=== PATIENT | female | born 1945 | race Caucasian/White ===

== ENCOUNTER 2017-02-25 14:09 | Day surgery (SDC) | payer MEDICARE ==
[~2017-02-25 14:09] MED LIST: GLUCOPHAGE1000 MG PO; GLUCOTROL 5 MG T5 MG PO; MOBIC7.5 MG PO; PRESERVISION AR1 CAP PO; SYNTHROID75 MCG PO; ZOCOR10 MG PO
[2017-02-25 15:23] LABS: BASOPHILS 0.2 % (0-2); EOSINOPHILS 1.3 % (0-7); HEMATOCRIT 35.3 % (36.0-48.0); HEMOGLOBIN 11.7 g/dL (12-16); IMMATURE GRANULOCYTES 0.2 % (0-5); LYMPHOCYTES 17.3 % (15-50); MCH 30.1 pg (26.0-34.0); MCHC 33.1 g/dL (31.0-37.0); MCV 90.7 fL (80.0-100.0); MONOCYTES 8.7 % (2-11); NEUTROPHILS 72.3 % (40-80); PLATELET COUNT 323 10x3/uL (130-400); RBC 3.89 10x6/uL (4.00-5.40); RDW 13.3 % (11.5-14.5); WBC 11.3 10x3/uL (4.8-10.8)
[2017-02-25 15:35] LABS: INR 0.93 (0.85-1.17); PROTIME 12.3 SECONDS (11.6-15.0)
[2017-02-25 15:43] LABS: ALBUMIN 3.4 g/dL (3.4-5.0); ANION GAP 16.1 mmol/L (8-16); BILIRUBIN - TOTAL 0.31 mg/dL (0.2-1.3); CALCIUM 9.2 mg/dL (8.5-10.1); CARBON DIOXIDE 25.2 mmol/L (21.0-32.0); CREATININE - SERUM 1.2 mg/dL (0.6-1.3); MAGNESIUM - SERUM 1.9 mg/dL (1.8-2.4); POTASSIUM - SERUM 4.3 mmol/L (3.5-5.1); PROTEIN - SERUM 8.3 g/dL (6.4-8.2)
[2017-02-25 23:05] VITALS: BP 139/72
[2017-02-25 23:26] VITALS: BP 133/72
[2017-02-25 23:41] VITALS: BP 131/71
[2017-02-25] MEDS ORDERED: GLUCOPHAGE XR750 MG PO (23:53)
[2017-02-25] MEDS ORDERED: GLIPIZIDE10 MG PO (23:54)
[2017-02-25] MEDS ORDERED: PROZAC20 MG PO (23:55)
[2017-02-25 23:56] VITALS: BP 123/58
[2017-02-25] MEDS ORDERED: VENTOLIN HFA18 GM INH (23:56)
[2017-02-26] VITALS (10 sets, daily range): BP systolic 93–177; BP diastolic 47–100; BMI 24.3
--- NOTE | 2017-02-26 09:10 | OP ---
PATIENT NAME: KATYA WASHINGTON MEDICAL RECORD: [id number] :49 LOCATION:D.[id number] ADMISSION DATE:02/25/17 SURGEON: CHESTER FERRIS DO DATE OF OPERATION: 02/25/2017 PROCEDURE PERFORMED: Right bimalleolar ankle fracture open reduction internal fixation with syndesmotic fixation. PREOPERATIVE DIAGNOSIS: Right ankle fracture dislocation that was closed. POSTOPERATIVE DIAGNOSIS: Right ankle fracture dislocation that was closed. INDICATIONS: Ms. Washington is a 71-year-old female who fell while getting up from a chair today, went to catch a wall and missed and twisted her ankle and fractured and dislocated. She was brought to the ER and seen in the ER, was dislocated, in the ER attempted reduction were not successful. They splinted it and at that time I saw her in the ER and decided she needed to have surgery. The medial malleolus was tenting the skin and therefore decided to take her back this evening to the operating room. She is admitted to medicine and consented for the procedure. I warned of the risks and benefits of the procedure. Once this was done, she was consented. SURGEON: Chester Ferris DO COMPLICATIONS: None. TOTAL TOURNIQUET TIME: 114 minutes. BLOOD LOSS: 50 mL. DESCRIPTION OF PROCEDURE: The patient was taken to the operative suite, placed in supine position. The right hip was bumped up, placed on bone foam. The procedure commenced after timeout was performed and the patient was given 2 grams Ancef. Once she was given that everyone was in agreement that this was the correct site, side and patient. The right leg was prepped and draped. A tourniquet was placed above the knee. Below the knee was prepped and draped in sterile fashion. The procedure then commenced with the fibula. Incision was made just over the fibula and careful dissection was made down to the fibula itself. The fibula was somewhat difficult to reduce. The plate was placed distally first and locked and then proximally. Then, attention was drawn to the medial malleolus. Medial malleolus was then fixed with 2 cannulated screws. An incision was made just anterior to the medial malleolus and curved posteriorly over the joint, visualized and good reduction at that time. Once this was done, getting lateral x-rays, tibia was seen to be not reduced and seemed to be posterior. This was recognized and seemed to be a Franklin-type fracture dislocation of the fibula where the fibula was posterior to the tibia more that the proximal fibula was caught and posterior to the fibular incisura on the tibia. Once this was recognized, we then returned to the lateral side of the ankle and reduced the fibula to its proper place. After the screws were taken out proximally from the fibular plate, the distal screws were left and the fibula was reduced at that time. This was confirmed on x-ray and then 2 screws were placed proximal, first a cortical screw and then a locking screw at the very top of the construct of the plate, the locking screws remained in place on the distal fibula. X-rays were taken and the syndesmosis was stressed that time and seen to widen as well as a medial malleolus clear space. Then, a large OPERATIVE REPORT [id number] KATYA WASHINGTON clamp was used to reduce the syndesmosis and two ZipTights were used with a 3.5 drill, drilled across from the fibula through the medial cortex of the tibia. This was done just proximal to the fracture site and right in the distal aspect of the fracture site of the fibula. Once this was done and seen to be satisfactorily reduced and tightened, the clamp was taken off and the sutures were cut from the ZipTight. The ankle was then stressed again and seemed to be very stable. Tourniquet was let down at 114 minutes. The wound was then irrigated thoroughly and bleeding was controlled. The fibular incision was then irrigated well and closed with 2-0 Vicryl in an inverted interrupted fashion and the medial incision was closed with 2-0 Vicryl and then the skin was closed with a 3-0 Monocryl in a horizontal mattress fashion. A ZipLine was used on the lateral ankle for skin closure. Implants that were used was a Biomet ZipTight ankle syndesmosis times 2. A 4.0 right anatomic fibular locking plate. Five 3.5 cortical screws. Two 3.5 low profile screws and they were 4.0 screws which were 46 in length, partially threaded times 2 that was used on the medial malleolus. Blood loss was approximately 50 mL. TRANSINT:[id number] Voice Confirmation ID: [id number] DOCUMENT ID: [id number] CHESTER FERRIS DO at 0910 CC: [id number] DICTATION DATE: 02/25/172251 GROUNDSMAN: 02/26/17 0045 ADM IN [facility] [address] [id number]
[2017-02-26 10:11] LABS: ALBUMIN 2.8 g/dL (3.4-5.0); ANION GAP 9.4 mmol/L (8-16); BILIRUBIN - TOTAL 0.6 mg/dL (0.2-1.3); CALCIUM 8.5 mg/dL (8.5-10.1); CARBON DIOXIDE 28.9 mmol/L (21.0-32.0); CREATININE - SERUM 1.4 mg/dL (0.6-1.3); POTASSIUM - SERUM 5.3 mmol/L (3.5-5.1); PROTEIN - SERUM 6.8 g/dL (6.4-8.2)
[2017-02-26 10:31] LABS: BASOPHILS 0.2 % (0-2); EOSINOPHILS 0.6 % (0-7); HEMATOCRIT 32.6 % (36.0-48.0); HEMOGLOBIN 10.3 g/dL (12-16); IMMATURE GRANULOCYTES 0.3 % (0-5); LYMPHOCYTES 11.1 % (15-50); MCH 29.8 pg (26.0-34.0); MCHC 31.6 g/dL (31.0-37.0); MONOCYTES 10.7 % (2-11); NEUTROPHILS 77.1 % (40-80); PLATELET COUNT 286 10x3/uL (130-400); RBC 3.46 10x6/uL (4.00-5.40); RDW 13.5 % (11.5-14.5); WBC 12.2 10x3/uL (4.8-10.8)
[2017-02-26 10:35] LABS: MCV 94.2 fL (80.0-100.0)
[2017-02-27] VITALS: BP 96/45
[2017-02-27 04:00] VITALS: BP 97/51
[2017-02-27 06:06] LABS: BASOPHILS 0.3 % (0-2); EOSINOPHILS 2.3 % (0-7); HEMATOCRIT 29.7 % (36.0-48.0); HEMOGLOBIN 9.5 g/dL (12-16); IMMATURE GRANULOCYTES 0.2 % (0-5); LYMPHOCYTES 19.1 % (15-50); MCV 93.7 fL (80.0-100.0); MEAN PLATELET VOLUME 9.2 fL (7.4-10.4); MONOCYTES 14.9 % (2-11); NEUTROPHILS 63.2 % (40-80); PLATELET COUNT 266 10x3/uL (130-400); RBC 3.17 10x6/uL (4.00-5.40); RDW 13.7 % (11.5-14.5); WBC 10.4 10x3/uL (4.8-10.8)
[2017-02-27 06:46] LABS: ALBUMIN 2.4 g/dL (3.4-5.0); ANION GAP 11.2 mmol/L (8-16); BILIRUBIN - TOTAL 0.5 mg/dL (0.2-1.3); CALCIUM 7.9 mg/dL (8.5-10.1); CARBON DIOXIDE 26.1 mmol/L (21.0-32.0); CREATININE - SERUM 1.2 mg/dL (0.6-1.3); POTASSIUM - SERUM 4.3 mmol/L (3.5-5.1); PROTEIN - SERUM 6.4 g/dL (6.4-8.2)
[2017-02-27 08:11] VITALS: BP 102/57
[2017-02-27] MEDS ORDERED: VIBRAMYCIN 100100 MG PO (08:59)
[2017-02-27] MEDS ORDERED: HYDROCODONE-APA1 TAB PO (08:59)
[2017-02-27] MEDS ORDERED: ZOFRAN ODT4 MG/UDTAB PO (08:59)
[2017-02-27] MEDS ORDERED: ECOTRIN325 MG PO (08:59)
== END 2017-02-27 15:40 | disposition home or self-care (01) ==
LOC: OBSVTIME → D.OPS 14:09 → D.ER 14:09 → EDSTATUS 15:30 → OBSVTIME 16:28 → D.MS 16:28 → D.ER 16:28 → D.MS 16:28 → D.OPS 02-27 15:40
PROVIDERS: Emergency Medicine; Family Medicine
DX: S82.841A Displaced bimalleolar fracture of right lower leg, initial encounter for closed fracture (principal); W07.XXXA Fall from chair, initial encounter; E11.9 Type 2 diabetes mellitus without complications; E78.5 Hyperlipidemia, unspecified; E07.9 Disorder of thyroid, unspecified; H35.30 Unspecified macular degeneration; H91.90 Unspecified hearing loss, unspecified ear; Z79.84 Long term (current) use of oral hypoglycemic drugs; Z79.1 Long term (current) use of non-steroidal anti-inflammatories (NSAID); Z88.5 Allergy status to narcotic agent; Z88.0 Allergy status to penicillin; Z88.2 Allergy status to sulfonamides; Z87.891 Personal history of nicotine dependence

== ENCOUNTER → 2018-01-07 14:07 | Outpatient (CLI) | payer MEDICARE ==
[2017-02-26 00:49] VITALS: BMI 24.3
[~2018-01-07 14:07] MED LIST changes: +ECOTRIN325 MG PO; +GLIPIZIDE10 MG PO; +GLUCOPHAGE XR750 MG PO; +HYDROCODONE-APA1 TAB PO; +PROZAC20 MG PO; +VENTOLIN HFA18 GM INH; +VIBRAMYCIN 100100 MG PO; +ZOFRAN ODT4 MG/UDTAB PO
== END | disposition home or self-care (01) ==
LOC: D.US 14:07
DX: Z68.23 Body mass index [BMI] 23.0-23.9, adult (principal)

== ENCOUNTER 2019-04-26 07:06 | Inpatient (IN) | payer OTHER ==
[~2019-04-26] VITALS: Ht 172.7 cm; Wt 74.4 kg
[~2019-04-26 07:06] MED LIST changes: +TRADJENTA5 MG PO
[2019-04-26 07:43] LABS: ANION GAP 13.8 mmol/L (8-16); CARBON DIOXIDE 27.3 mmol/L (21.0-32.0); CREATININE - SERUM 1.6 mg/dL (0.6-1.3); POTASSIUM - SERUM 4.1 mmol/L (3.5-5.1)
[2019-04-26 07:45] LABS: HEMATOCRIT 37.7 % (36.0-48.0); HEMOGLOBIN 12.5 g/dL (12-16); MCH 29.8 pg (26.0-34.0); MCHC 33.2 g/dL (31.0-37.0); RBC 4.19 10x6/uL (4.00-5.40); RDW 13.7 % (11.5-14.5); WBC 8.3 10x3/uL (4.8-10.8)
[2019-04-26 08:58] VITALS: BMI 25.1
[2019-04-26] MEDS ORDERED: FLAGYL500 MG PO (09:35)
[2019-04-26] MEDS ORDERED: NEOMYCIN SULFA500 MG PO (09:36)
--- NOTE | 2019-04-26 13:24 | NUR ---
AMEZCUA DC'D WITH CATHETER TIP INTACT PER DR BUSTILLO ORDERS. 120CC ALDO URINE IN BAG.
[2019-04-26 14:30] VITALS: BP 118/50
[2019-04-26 14:39] VITALS: BP 118/50; BMI 24.9
[2019-04-26 17:03] VITALS: BP 102/42
[2019-04-26 17:22] LABS: BASOPHILS 0.2 % (0-2); EOSINOPHILS 0.1 % (0-7); HEMATOCRIT 32.9 % (36.0-48.0); HEMOGLOBIN 10.4 g/dL (12-16); IMMATURE GRANULOCYTES 0.2 % (0-5); LYMPHOCYTES 7.7 % (15-50); MCH 29.1 pg (26.0-34.0); MCHC 31.6 g/dL (31.0-37.0); MCV 91.9 fL (80.0-100.0); MEAN PLATELET VOLUME 9.1 fL (7.4-10.4); MONOCYTES 10.6 % (2-11); NEUTROPHILS 81.2 % (40-80); PLATELET COUNT 245 10x3/uL (130-400); RBC 3.58 10x6/uL (4.00-5.40); RDW 13.9 % (11.5-14.5)
[2019-04-26 17:30] LABS: WBC 12.4 10x3/uL (4.8-10.8)
--- NOTE | 2019-04-26 19:23 | NUR ---
PATIENT RESTING IN BED AND DENIES NEEDS AT THIS TIME. PATIENT ALSO DENIES PAIN AT THIS TIME. BED IN LOWEST POSITION AND CALL LIGHT WITHIN REACH. ENCOURAGED THE PATIENT TO CALL IF SHE HAS NEEDS. WILL CONTINUE TO MONITOR.
[2019-04-26 20:00] VITALS: BP 117/50
[2019-04-27] VITALS: BP 110/51
--- NOTE | 2019-04-27 02:50 | NUR ---
ASSISTED PATIENT TO THE RESTROOM FOR THE THIRD TIME TO ATTEMPT TO URINATE. PATIENT STATED SHE WAS ONLY ABLE TO GO "A TINY BIT". BLADDER SCAN REVEALED 827ML
--- NOTE | 2019-04-27 03:13 | NUR ---
IN AND OUT CATH 600 ML
[2019-04-27 04:00] VITALS: BP 108/59
--- NOTE | 2019-04-27 07:30 | NUR ---
PATIENT AWAKE. NO NEEDS AT THIS TIME. CL IN REACH. WCTM
[2019-04-27 08:00] VITALS: BP 109/55
--- NOTE | 2019-04-27 10:45 | NUR ---
PATIENT PROVIDED ICE CHIPS. INFORMED TO TAKE IT SLOW. LET ME KNOW IF SHE HAS ANY NAUSEA. PREPARING TO TAKE A NAP. CL IN REACH. MATHEUS
[2019-04-27 12:00] VITALS: BP 115/52
[2019-04-27 17:04] VITALS: BP 115/59
--- NOTE | 2019-04-27 17:20 | NUR ---
PATIENT ASSISTED TO BATHROOM AND BACK TO BED. GRANDSON LAURA HERE. SCD'S REAPPLIED. CL IN REACH. WCTM
[2019-04-27 20:00] VITALS: BP 139/66
[2019-04-28] VITALS: BP 127/61
[2019-04-28 04:00] VITALS: BP 110/64
--- NOTE | 2019-04-28 08:39 | NUR ---
PATIENT AWAKE LAYING IN BED. CL IN REACH. NO NEEDS AT THIS TIME. WCTM
[2019-04-28 09:02] VITALS: BP 115/63
[2019-04-28 13:25] VITALS: BP 113/65
[2019-04-28 14:23] VITALS: Ht 172.7 cm; Wt 74.4 kg
--- NOTE | 2019-04-28 16:51 | OP ---
PATIENT NAME: KATYA WYNNE MEDICAL RECORD: [id number] :49 LOCATION:D.[facility] ADMISSION DATE:04/26/19 SURGEON: ARUN BUSTILLO MD DATE OF OPERATION: 04/26/2019 PREOPERATIVE DIAGNOSIS: Endoscopically unresectable appendiceal orifice polyp. POSTOPERATIVE DIAGNOSES: Endoscopically unresectable appendiceal orifice polyp. PROCEDURE: Laparoscopic cecectomy with conversion to hand-assisted laparoscopic surgery - partial right colectomy. SURGEON: Arun Bustillo MD DIESEL TRUCK CRANE OPERATOR: None. BLOOD LOSS: 100 cc. ANESTHESIA: General. COMPLICATIONS: None. The risks, possible complications, and alternatives to the procedure were explained to the patient. She elects to proceed. The discussion specifically included, but was not limited to, bleeding requiring emergency reoperation, infection, intestinal injury, anastomotic leakage, and colostomy formation. OPERATIVE COURSE: The patient was conveyed to the operating room electively on 04/26/2019. General anesthesia was induced by the anesthesia staff. The abdomen was sterilely prepped and draped. A small skin jenny was accomplished in the left upper quadrant. A Veress needle was inserted through the skin jenny into the peritoneal cavity. CO2 insufflation was begun. Once a sufficient pneumoperitoneum had been achieved, a 5-mm trocar was inserted through an incision in the left upper quadrant. Under direct internal vision utilizing a television camera, a 12-mm trocar was inserted through an incision at the umbilicus. Another 5-mm trocar was inserted through the incision in the left lower quadrant. During insertion of the Veress needle and all trocars, there appeared to have been no injury to the bowels, any intraperitoneal or retroperitoneal structures. An abdominal survey was undertaken. I noted no evidence of liver lesions. I used endoscopic scissors to free up the cecum and a portion of the right colon from the side wall. I was able to then pull this portion of the colon immediately. I took down the mesoappendix utilizing the laparoscopic EnSeal device. I grasped the appendix and I pulled it caudad and then took an Endo-URSZULA stapler with a blue load and stapled across the cecum. I then placed the specimen in a retrieval bag. I then retrieved it out through the umbilical fascia defect. I then opened the specimen on the back table. I noted no evidence of a polyp. I sent this to Dr. Westbrook in the pathology department. He grossly determined that no polypoid tissue was present within the specimen. I then regowned and regloved. I was able to grasp a little bit more of the colonic tissue and I feared that if I took more it would cause impingement upon the ileocecal valve. OPERATIVE REPORT [id number] KATYA WYNNE I kind of rolled the colon from anteriorly to posteriorly. I stapled across additional colon with an Endo-URSZULA type stapler utilizing blue loads. The specimen was placed within a bag retrieval device. It was withdrawn through the umbilical fascia defect. I then opened it up on the back table and again identified no polypoid tissue. This was sent to Dr. Westbrook in the pathology department. I went with the specimen and reviewed it with Dr. Westbrook and he agreed that there was no polyp within the specimen. In order to ensure that the polyp had been removed, it is going to be necessary for me to perform a resection anastomosis. I chose an area for insertion of a hand port. This was in the right side of the abdomen between the anterior superior iliac spine and the right costal margin. A transverse incision was accomplished. Sharp dissection was carried down through the skin and subcutaneous tissues. I incised the external oblique muscle along the direction of its fibers and utilizing a fiber technique, I the fibers of the external oblique muscle and aponeurosis, the internal oblique muscle and then the transversus abdominis muscle. I entered the peritoneal cavity sharply. An Darci retractor was placed. Through the Darci retractor, I was able to do some more finger dissection and I was able to deliver the cecum as well as a portion of the ascending colon and the ileum. I stapled across the ileum with a URSZULA-75 stapler. I then chose the distal extent of my resection to be the mid ascending colon. This would ensure that the polyp would be removed. A window was created in the mesocolon. I stapled across the colon with a URSZULA-75 stapler. The interpose mesentery was taken down with the EnSeal device. This was opened on the back table and I could not identify any polypoid tissue. It must have been present within one of the staple lines or perhaps Dr. Westbrook can find it. Anyhow, it certainly must have been removed as I resected all the way up to the mid ascending colon. The antimesenteric borders of the ileum and the colon were then placed in apposition side by side. They were kept in place with 3-0 Vicryl sutures. A small enterotomy and small colotomy were accomplished. Anvils of the URSZULA-75 stapler were advanced and then fired. The resulting intracolonic defect was closed with a single firing of the TA 60 stapler. The anastomosis was then returned to the peritoneal cavity. I irrigated and aspirated and there was no bleeding. I then closed the muscles in layers. The transverse abdominis muscle was closed with a running #1 Vicryl. The internal oblique muscle was closed with a running #1 Vicryl. The external oblique was closed with a running #1 Vicryl. The deep adipose tissue was closed with interrupted 3-0 Vicryls. The subcutaneous adipose tissue was closed with interrupted 3-0 Vicryls. The skin was closed with a running intracuticular 3-0 Vicryl. I then reinsufflated the abdomen. I investigated the abdomen. I irrigated and aspirated. There was no bleeding. The 12-mm trocar was removed. Utilizing the Jered-Nathanael suture closure device and 0 Vicryl suture, the umbilical fascia defect was closed. All the trocars were removed and the abdomen desufflated. The skin at the level of umbilicus was closed with interrupted 4-0 Vicryl Rapide sutures. The other 2 trocar sites were closed with interrupted intracuticular 3-0 Vicryls. Benzoin and Steri-Strips were applied. The patient was then extubated and conveyed to post-anesthesia care unit where OPERATIVE REPORT [id number] KATYA WYNNE she was in stable condition. TRANSINT:[id number] Voice Confirmation ID: [id number] DOCUMENT ID: [id number] ARUN BUSTILLO MD at 1651 CC: [id number] DICTATION DATE: 04/27/191657 HAMMERSMITH HELPER: 04/27/19 2242 ADM IN [id number] [place] [address]
[2019-04-28 17:02] VITALS: BP 103/58
[2019-04-28 20:00] VITALS: BP 98/55
[2019-04-29] VITALS: BP 136/62
[2019-04-29 04:00] VITALS: BP 119/64
--- NOTE | 2019-04-29 07:25 | NUR ---
PT SITTING UP IN CHAIR AT BEDSIDE, ALERT AND ORIENTED. IV LOCATED TO RIGHT HAND WITH NS RUNNING @ 30ML. NO S/S OF DISTRESS AT THIS TIME, DENIES NEEDS, WILL CONT TO MONITOR.
[2019-04-29 08:35] VITALS: BP 132/54
[2019-04-29] MEDS ORDERED: HYDROCODON-ACE1 EAC7 PO (09:28)
[2019-04-29] MEDS ORDERED: COLACE100 MG PO (09:48)
--- NOTE | 2019-04-29 11:41 | MORECARE ---
CASE MANAGEMENT DISCHARGE SUMMARY PATIENT: KATYA WYNNE UNIT: [id number] ADM DATE: 04/26/19 AGE: 73 : 47 SEX: F ROOM/BED: D.2202 AUTHOR: KATIE LANG PHYSICIAN: REFERRING PHYSICIAN: ARUN BUSTILLO MD DATE OF SERVICE: 04/29/19 Discharge Plan Patient Name: KATYA WYNNE Facility: [facility]:[place] : 1945 Planned Disposition: Anticipated Discharge Date: Discharge Date: Expected LOS: Initial Reviewer: [email or web address] Initial Review Date: 04/27/2019 Generated: 04/29/19 12:41 pm Coverage Notice Reviewer: [email or web address] Carlota Woodruff Notice Issued Date-Time: 04/29/2019 10:15 Notice Type: IM Discharge Notice Notice Delivered To: Patient Relationship to Patient: Self Environmental Sustainability Manager Name: Delivery Method: HAND - Hand Delivered Lainey Days: Prior Verbal Notification: Recipient Understood Notice: Yes Recipient Signature: Yes Med Rec Note Co-signed by Attending: Coverage Notice Comment: D/C IMM SIGNED 04/29/19 @ 1015 Patient Name: KATYA WYNNE Page [phone] at 1141 All edits/amendments must be made on the electronic document DICTATION DATE: 04/29/19 1141 PHARMACY SALES REPRESENTATIVE: MICKY 04/29/19 1141 RPT#: [id number] DC DATE: STATUS: ADM IN [facility] [address] [place] [address] END OF REPORT
--- NOTE | 2019-04-29 11:54 | MORECARE ---
CASE MANAGEMENT DISCHARGE SUMMARY PATIENT: KATYA WYNNE UNIT: [id number] ADM DATE: 04/26/19 AGE: 73 : 47 SEX: F ROOM/BED: D.2202 AUTHOR: RICKEY,DOC PHYSICIAN: REFERRING PHYSICIAN: ARUN BUSTILLO MD DATE OF SERVICE: 04/29/19 Discharge Plan Patient Name: KATYA WYNNE Facility: [facility]:[place] : 1945 Planned Disposition: Anticipated Discharge Date: Discharge Date: Expected LOS: Initial Reviewer: [email or web address] Initial Review Date: 04/27/2019 Generated: 04/29/19 12:54 pm Comments DCP- Discharge Planning Updated by [email or web address]: Makayla Woodruff on 04/29/19 10:[address] Patient Name: KATYA WYNNE Admission Status: Elective Accout number: [id number] Admission Date: 04-26-2019 : 1945 Admission Diagnosis:BENIGN NEOPLASM OF CECUM Attending: ARUN BUSTILLO Current LOS: 3 Anticipated DC Date: Planned Disposition: Primary Insurance: [email or web address] Discharge Planning Comments: CM met with patient to complete initial dc planning assessment. CM educated patient on the CM role and verbal consent given by patient to complete assessment. CM verified patient's address, phone number, and emergency contact phone numbers. Patient lives at home with a family member. At discharge patient plans to return home and feels this is a safe discharge. CM discussed availability of home health, rehab services, and medical equipment. Patient denied known discharge needs at this time. D/C IMM signed 04/29/19 @ 1015. CM will continue to follow and will assist as needed with dc plans/needs. Hvac Service Tech: Makayla Woodruff DCPIA - Discharge Planning Initial Assessment Updated by [email or web address]: Makayla Woodruff on 04/29/19 11:50 am * Is the patient Alert and Oriented? Yes * How many steps to enter\exit or inside your home? * PCP ELANA * [facility] * Preadmission Environment Home with Family * ADLs Independent * Other Equipment BSC, CANE * List name and contact numbers for known caregivers / representatives who currently or will assist patient after discharge: MERLYN SHI - DAUGHTER- [phone] * Verbal permission to speak to the caregivers and representatives has been obtained from the patient. Yes * Community resources currently utilized None * Additional services required to return to the preadmission environment? No * Can the patient safely return to the preadmission environment? Yes * Has this patient been hospitalized within the prior 30 days at any hospital? No Coverage Notice Reviewer: [email or web address] Carlota Woodruff Notice Issued Date-Time: 04/29/2019 10:15 Notice Type: IM Discharge Notice Notice Delivered To: Patient Relationship to Patient: Self Back Tender Cylinder Name: Delivery Method: HAND - Hand Delivered Lainey Days: Prior Verbal Notification: Recipient Understood Notice: Yes Recipient Signature: Yes Med Rec Note Co-signed by Attending: Coverage Notice Comment: D/C IMM SIGNED 04/29/19 @ 1015 Last DP export: 04/29/19 10:41 Patient Name: KATYA WYNNE Page [phone] at 1154 All edits/amendments must be made on the electronic document DICTATION DATE: 04/29/19 1154 FOUNDRY HAND: MICKY 04/29/19 1154 RPT#: [id number] DC DATE: STATUS: ADM IN [facility] [address] [place] [address] END OF REPORT
--- NOTE | 2019-05-01 12:25 | MORECARE ---
CASE MANAGEMENT DISCHARGE SUMMARY PATIENT: KATYA WYNNE UNIT: [id number] ADM DATE: 04/26/19 AGE: 73 : 47 SEX: F ROOM/BED: D.2202 AUTHOR: RICKEYDOC PHYSICIAN: REFERRING PHYSICIAN: ARUN BUSTILLO MD DATE OF SERVICE: 05/01/19 Discharge Plan Patient Name: KATYA WYNNE Facility: [facility]:[place] : 1945 Planned Disposition: Anticipated Discharge Date: Discharge Date: 04/29/2019 Expected LOS: Initial Reviewer: [id number] Initial Review Date: 04/27/2019 Generated: 05/01/19 1:24 pm Comments DCP- Discharge Planning Updated by [email or web address]: Makayla Woodruff on 04/29/19 10:[address] Patient Name: KATYA WYNNE Admission Status: Elective Accout number: [id number] Admission Date: 04-26-2019 : 1945 Admission Diagnosis:BENIGN NEOPLASM OF CECUM Attending: ARUN BUSTILLO Current LOS: 3 Anticipated DC Date: Planned Disposition: Primary Insurance: [employer] Discharge Planning Comments: CM met with patient to complete initial dc planning assessment. CM educated patient on the CM role and verbal consent given by patient to complete assessment. CM verified patient's address, phone number, and emergency contact phone numbers. Patient lives at home with a family member. At discharge patient plans to return home and feels this is a safe discharge. CM discussed availability of home health, rehab services, and medical equipment. Patient denied known discharge needs at this time. D/C IMM signed 04/29/19 @ 1015. CM will continue to follow and will assist as needed with dc plans/needs. Pediatric Care Coordinator: Makayla Woodruff DCPIA - Discharge Planning Initial Assessment Updated by [email or web address]: Makayla Woodruff on 04/29/19 11:50 am * Is the patient Alert and Oriented? Yes * How many steps to enter\exit or inside your home? * PCP ELANA * [facility] * Preadmission Environment Home with Family * ADLs Independent * Other Equipment BSC, CANE * List name and contact numbers for known caregivers / representatives who currently or will assist patient after discharge: MERLYN SHI - PHYLLIS- [phone] * Verbal permission to speak to the caregivers and representatives has been obtained from the patient. Yes * Community resources currently utilized None * Additional services required to return to the preadmission environment? No * Can the patient safely return to the preadmission environment? Yes * Has this patient been hospitalized within the prior 30 days at any hospital? No Coverage Notice Reviewer: [id number] Carlota Woodruff Notice Issued Date-Time: 04/29/2019 10:15 Notice Type: IM Discharge Notice Notice Delivered To: Patient Relationship to Patient: Self Store Assistant Name: Delivery Method: HAND - Hand Delivered Lainey Days: Prior Verbal Notification: Recipient Understood Notice: Yes Recipient Signature: Yes Med Rec Note Co-signed by Attending: Coverage Notice Comment: D/C IMM SIGNED 04/29/19 @ 1015 Last DP export: 04/29/19 10:54 Patient Name: KATYA WYNNE Page [phone] at 1225 All edits/amendments must be made on the electronic document DICTATION DATE: 05/01/19 1224 CELL ASSEMBLY PINNER: MICKY 05/01/19 1224 RPT#: [id number] DC DATE:04/29/19 STATUS: DIS IN [facility] [address] [place] [address] END OF REPORT
== END 2019-04-29 15:21 | disposition home or self-care (01) | DRG 330 ==
LOC: D.OPS 07:06 → D.MS 07:06 → D.PAN 09:30 → D.OPS 09:30 → D.PAN 09:45 → D.MS 14:01 → D.OPS 14:01 → D.MS 04-29 15:21
PROVIDERS: Anesthesiology; ADMIT Surgery; ATTEND Surgery
PROC: 0DTH0ZZ Resection of Cecum, Open Approach (ICD-10-PCS; principal; 2019-04-26 09:30)
PROC: 0DBF0ZZ Excision of Right Large Intestine, Open Approach (ICD-10-PCS; 2019-04-26 09:30)
DX: D12.0 Benign neoplasm of cecum (principal); F33.1 Major depressive disorder, recurrent, moderate; E11.9 Type 2 diabetes mellitus without complications; M19.90 Unspecified osteoarthritis, unspecified site; J45.909 Unspecified asthma, uncomplicated; E07.9 Disorder of thyroid, unspecified; F41.8 Other specified anxiety disorders

== ENCOUNTER → 2019-05-22 10:48 | Outpatient (CLI) | payer OTHER ==
[2019-04-28 14:23] VITALS: BMI 24.9
[~2019-05-22 10:48] MED LIST changes: +COLACE100 MG PO; +FLAGYL500 MG PO; +HYDROCODON-ACE1 EAC7 PO; +NEOMYCIN SULFA500 MG PO
== END | disposition home or self-care (01) ==
LOC: D.NM 10:48
PROVIDERS: ATTEND Surgery
DX: R68.81 Early satiety (principal)

== ENCOUNTER 2020-09-11 11:43 | Inpatient (IN) | payer OTHER ==
[~2020-09-11] VITALS: Ht 172.7 cm; Wt 68.5 kg
[2020-09-11 12:51] LABS: BASOPHILS 0.2 % (0-2); EOSINOPHILS 0.4 % (0-7); HEMATOCRIT 35.3 % (36.0-48.0); HEMOGLOBIN 11.5 g/dL (12-16); IMMATURE GRANULOCYTES 0.3 % (0-5); LYMPHOCYTE ABS# 1.06 10x3/uL (1.18-3.74); LYMPHOCYTES 9.9 % (15-50); MCH 30.2 pg (26.0-34.0); MCHC 32.6 g/dL (31.0-37.0); MCV 92.7 fL (80.0-100.0); MEAN PLATELET VOLUME 9.1 fL (7.4-10.4); MONOCYTES 6.8 % (2-11); NEUTROPHIL ABS# 8.86 10x3/uL (1.56-6.13); NEUTROPHILS 82.4 % (40-80); PLATELET COUNT 275 10x3/uL (130-400); RBC 3.81 10x6/uL (4.00-5.40); RDW 13.7 % (11.5-14.5); WBC 10.7 10x3/uL (4.8-10.8)
[2020-09-11 13:00] LABS: ANION GAP 13.7 mmol/L (8-16); CALCIUM 9.5 mg/dL (8.5-10.1); CARBON DIOXIDE 26.2 mmol/L (21.0-32.0); CREATININE - SERUM 1.7 mg/dL (0.6-1.3); POTASSIUM - SERUM 4.9 mmol/L (3.5-5.1)
[2020-09-11 13:06] LABS: ALBUMIN 3.4 g/dL (3.4-5.0); BILIRUBIN - TOTAL 0.73 mg/dL (0.2-1.3); PROTEIN - SERUM 7.9 g/dL (6.4-8.2)
[2020-09-11 13:20] LABS: APTT 27.3 SECONDS (22.8-39.4); INR 1.13 (0.85-1.17); PROTIME 13.5 SECONDS (11.6-15.0)
[2020-09-11 18:19] VITALS: BP 119/62
--- NOTE | 2020-09-11 19:48 | NUR ---
PT DENTURES X 2 PLATES REMOVED BY PATIENT IN HOLDING, PLACED IN LABELED DENTURE CUP AND GIVEN TO DAUGHTER, MERLYN. NOTED, KENANRN
--- NOTE | 2020-09-11 22:30 | NUR ---
RECIEVED TO ROOM FROM RECOVERY, AROUSES EASILY, DRESSIGN TO MAIRA GALAVIZ C/D/I, PEDAL PULSES PALAPABLE AND EQUIL, C/O BACK PAIN BUT DENIES HIP PAIN, SEE ASSESSMENT, CALL LIGHT IN REACH,
[2020-09-11 22:49] VITALS: BP 110/56; BMI 23.0
[2020-09-11 23:30] VITALS: BP 109/48
[2020-09-12] VITALS (7 sets, daily range): BP systolic 101–118; BP diastolic 48–69; Ht 172.7 cm; Wt 68.5 kg
[2020-09-12 06:16] LABS: BILIRUBIN NEGATIVE (NEGATIVE); KETONE NEGATIVE (NEGATIVE); NITRITE NEGATIVE (NEGATIVE); UROBILINOGEN NORMAL mg/dL (< 2)
[2020-09-12 06:19] LABS: BACTERIA FEW HPF (NONE SEEN); SQUAMOUS EPITHELIAL NONE SEEN HPF (0-4)
[2020-09-12 08:27] LABS: BASOPHILS 0.1 % (0-2); EOSINOPHILS 0.3 % (0-7); HEMATOCRIT 30.2 % (36.0-48.0); HEMOGLOBIN 9.3 g/dL (12-16); IMMATURE GRANULOCYTES 0.3 % (0-5); LYMPHOCYTE ABS# 0.91 10x3/uL (1.18-3.74); LYMPHOCYTES 9.1 % (15-50); MCH 29.5 pg (26.0-34.0); MCHC 30.8 g/dL (31.0-37.0); MEAN PLATELET VOLUME 9.1 fL (7.4-10.4); MONOCYTES 6.8 % (2-11); NEUTROPHIL ABS# 8.32 10x3/uL (1.56-6.13); NEUTROPHILS 83.4 % (40-80); RBC 3.15 10x6/uL (4.00-5.40); RDW 14.1 % (11.5-14.5)
[2020-09-12 08:49] LABS: ALBUMIN 2.6 g/dL (3.4-5.0); ANION GAP 14.5 mmol/L (8-16); BILIRUBIN - TOTAL 0.39 mg/dL (0.2-1.3); CALCIUM 7.4 mg/dL (8.5-10.1); CARBON DIOXIDE 22.5 mmol/L (21.0-32.0); CREATININE - SERUM 1.4 mg/dL (0.6-1.3)
[2020-09-12 09:00] LABS: MCV 95.9 fL (80.0-100.0); PLATELET COUNT 212 10x3/uL (130-400)
--- NOTE | 2020-09-12 12:15 | OP ---
PATIENT NAME: KATYA WASHINGTON MEDICAL RECORD: [id number] :49 LOCATION:D. D.1208 ADMISSION DATE:09/11/20 SURGEON: AUBREY FERRIS DO DATE OF OPERATION: 09/11/2020 PROCEDURE PERFORMED: Right total hip arthroplasty. PREOPERATIVE DIAGNOSIS: Right displaced femoral neck fracture. POSTOPERATIVE DIAGNOSIS: Right displaced femoral neck fracture. INDICATIONS: Ms. Washington is a 75-year-old female that fell today onto her right side, tried to bear weight and could not, was brought to the ER, seen to have a femoral neck fracture. She asked that I would do her surgery. I informed her of the risks of this including infection, bleeding, fracture, damage to nerves or vessels, need for further surgery, continued pain, loss of motion of the hip, blood clots, failure of implants and even and she signed the consent. SURGEON: Aubrey Ferris DO. DESCRIPTION OF PROCEDURE: The patient was taken to the operative suite, laid in supine position, given general anesthetic and intubated. She was given a gram of TXA and a gram of Ancef. She was then moved to the Troy table and positioned. The right hip was prepped and draped in sterile fashion. A timeout was performed and everybody was in agreement with correct side, site, patient and procedure. I then began by making an incision over the tensor fascia terrell muscle belly with careful dissection down to the tensor fascia terrell muscle itself. I then took the tensor fascia anteriorly, opened up the rectus interval, took the rectus medially, the tensor fascia terrell laterally. We then encountered the ascending branch of lateral femoral circumflex artery, tied it off, coagulated and cut it and coagulated any bleeding with Aquamantys throughout the procedure. I then put Hohmann's around the neck of the femur, opened up the capsule and aggressive blood came out due to the fracture. I then tagged the capsule, put Hohmann's around the neck, made a neck cut, removed the head. I then removed the labrum after putting the Charnley in and the pulvinar. I then reamed up to a 50, 50 cup was then impacted and a liner was impacted into place. It was very well fitting and it was not loose. I checked it with a Cole. I then exposed the femur and using a cookie cutter and canal finder and started broaching and I broached up to an 11, got an x-ray and saw there was a little bit of varus and took that out. I used the cookie cutter a little bit more lateral. I then broached to a 12 and cracked the the greater trochanter on it while I was malleting in the stem. I then reduced with a -6 head equal length to the left. I then dislocated that and removed the trials, put in the actual 12 stem and then used #2 Ethibond to fix the greater in ojdbil-kn-lnkuo fashion down around the stem into the soft tissue just by the lesser trochanter secured into place. I then put a dual mobility -6 head and neck on and reduced the hip, feels equal length to the left. On x-ray AP pelvis, there were no other fractures seen in the femur. The stem fit very well. There was a greater trochanter fracture that I sutured also laterally down and closed the capsule with #2 Ethibond in a mthxiv-fg-kjasa fashion. I then irrigated with 10% povidine-iodine and 500 mL normal saline solution, let it sit for 2 minutes, irrigated out with a liter of normal saline and then put in [place] and vancomycin and tobramycin powder and closed the tensor fascia terrell with #1 Vicryl in a uiaybb-yc-ouymb and running locking stitch. Nara Gustafson, certified ophthalmic medical technician, then closed the skin with a 2-0 Vicryl in inverted OPERATIVE REPORT [id number] KATYA WASHINGTON interrupted fashion, 4-0 Monocryl on the skin and Prineo glue placed on the skin. Once that dried, she then placed Telfa and Tegaderm on the skin. She was then awakened and taken to recovery in stable condition. BLOOD LOSS: Approximately 300 mL. COMPLICATIONS: Greater trochanteric fracture. TRANSINT:[id number] Voice Confirmation ID: [id number] DOCUMENT ID: [id number] AUBREY FERRIS DO at 1215 CC: [id number] DICTATION DATE: 09/11/202129 COMMERCIAL CRABBER: 09/12/20 0607 [facility] [place] [id number] [place] [address]
--- NOTE | 2020-09-12 19:46 | NUR ---
RESTING IN BED,REPORTS PAIN WITH MOVEMENT, BUT OTHERWISE GOOD, DENIES DIZZINESS OR LIGHTHEADED WHEN UP TODAY STATES JUST FELT WEAK, ORTHO BP DONE ORDERED, LYING 109/49, SITTING 112/50, STANDING AT BEDSIDE WITH WALKER 88/33 DENIES DIZZINESS OR LIGHT HEADNESS, SEE SHIFT ASSESSMENT, CALL LIGHT IN REACH
[2020-09-13 04:00] VITALS: BP 105/50
[2020-09-13 07:25] VITALS: BP 110/44
--- NOTE | 2020-09-13 07:44 | NUR ---
PT RESTING QUIETLY IN BED WITH EYES CLOSED. RESP EVEN AND UNLABORED. O2 @ 2L NC IN PLACE. PT AWAKENS WITH STAFF ENTERING ROOM. PT DENIES PAIN AT THIS TIME. IV TO LEFT AC WITH NS @ 75ML/HR INFUSING VIA PUMP. SITE WITHOUT REDNESS OR EDEMA. DRESSING C/D/I TO RIGHT HIP. F/C PATENT TO GRAVITY. PULSES PALPABLE TO BILAT LOWER EXTREMITY. DENIES FURTHER NEEDS AT THIS TIME. CL WITHIN REACH. ENCOURAGED TO CALL WITH NEEDS. CONTINUE POC
[2020-09-13 07:48] LABS: ALBUMIN 2.3 g/dL (3.4-5.0); ANION GAP 11.6 mmol/L (8-16); BILIRUBIN - TOTAL 0.42 mg/dL (0.2-1.3); CALCIUM 7.6 mg/dL (8.5-10.1); CARBON DIOXIDE 23.5 mmol/L (21.0-32.0); CREATININE - SERUM 1.3 mg/dL (0.6-1.3); POTASSIUM - SERUM 4.1 mmol/L (3.5-5.1); PROTEIN - SERUM 5.8 g/dL (6.4-8.2)
[2020-09-13 08:00] VITALS: BP 110/44
[2020-09-13 08:03] LABS: BASOPHILS 0.3 % (0-2); EOSINOPHILS 4.1 % (0-7); HEMATOCRIT 26.3 % (36.0-48.0); HEMOGLOBIN 8.2 g/dL (12-16); IMMATURE GRANULOCYTES 0.1 % (0-5); LYMPHOCYTE ABS# 1.72 10x3/uL (1.18-3.74); LYMPHOCYTES 17.8 % (15-50); MCH 29.6 pg (26.0-34.0); MCHC 31.2 g/dL (31.0-37.0); MCV 94.9 fL (80.0-100.0); MEAN PLATELET VOLUME 9.1 fL (7.4-10.4); MONOCYTES 11.3 % (2-11); NEUTROPHIL ABS# 6.39 10x3/uL (1.56-6.13); NEUTROPHILS 66.4 % (40-80); PLATELET COUNT 198 10x3/uL (130-400); RBC 2.77 10x6/uL (4.00-5.40); RDW 13.8 % (11.5-14.5); WBC 9.6 10x3/uL (4.8-10.8)
[2020-09-13] MEDS ORDERED: ULTRAM50 MG PO (10:19)
[2020-09-13] MEDS ORDERED: ELIQUIS2.5 MG PO (10:26)
[2020-09-13 11:43] VITALS: BP 108/51
--- NOTE | 2020-09-13 14:01 | NUR ---
REPORT CALLED TO DORIS IN REHAB FOR DISCHARGE TO REHAB
[2020-09-13 21:31] VITALS: BP 125/57
--- NOTE | 2020-09-14 03:09 | NUR ---
I have reviewed this patient and I concur with the Shift Assessment completed by the Licensed Practical Nurse today this shift.
[2020-09-14 05:41] VITALS: BP 128/67
[2020-09-14 07:30] LABS: BASOPHILS 0.2 % (0-2); EOSINOPHILS 2.5 % (0-7); HEMATOCRIT 23.8 % (36.0-48.0); HEMOGLOBIN 7.7 g/dL (12-16); IMMATURE GRANULOCYTES 0.2 % (0-5); LYMPHOCYTE ABS# 1.73 10x3/uL (1.18-3.74); MCH 30.3 pg (26.0-34.0); MCHC 32.4 g/dL (31.0-37.0); MCV 93.7 fL (80.0-100.0); MEAN PLATELET VOLUME 9.3 fL (7.4-10.4); NEUTROPHIL ABS# 5.35 10x3/uL (1.56-6.13); NEUTROPHILS 65.1 % (40-80); PLATELET COUNT 188 10x3/uL (130-400); RBC 2.54 10x6/uL (4.00-5.40); RDW 13.8 % (11.5-14.5); WBC 8.2 10x3/uL (4.8-10.8)
[2020-09-14 07:32] LABS: ALBUMIN 2.1 g/dL (3.4-5.0); ANION GAP 11.6 mmol/L (8-16); BILIRUBIN - TOTAL 0.36 mg/dL (0.2-1.3); CALCIUM 7.3 mg/dL (8.5-10.1); CARBON DIOXIDE 23.5 mmol/L (21.0-32.0); CREATININE - SERUM 1.2 mg/dL (0.6-1.3); POTASSIUM - SERUM 4.1 mmol/L (3.5-5.1); PROTEIN - SERUM 5.3 g/dL (6.4-8.2)
--- NOTE | 2020-09-14 08:07 | NUR ---
ALERT AND ORIENTED. ASSESSMENT COMPLETE. DENIES NEEDS. BED LOW. CALL GHOSH AND PERSONAL ITEMS IN REACH. WILL CONTINUE TO MONITOR.
[2020-09-14 09:07] VITALS: BP 102/57
[2020-09-14 14:06] VITALS: BP 102/48
--- NOTE | 2020-09-14 14:30 | NUR ---
BLOOD TRANSFUSION INITIATED. VSS. WILL CONTINUE TO MONITOR.
--- NOTE | 2020-09-14 14:30 | NUR ---
REHAB PRESCREEN RECEIVED. DURING CHART REVIEW, PATIENT ONLY HAS ONE THERAPY ORDERED. SHE IS A NOVASYS AND WILL REQURE 2 THERAPEUTIC SERVICES. I HAVE SPOKEN WITH CELIO MADSEN AND REQUESTED AN OCCUPATIONAL THERAPY EVAL. SHE DID WALK 150 FEET, BUT IS HAVING BALANCE ISSUES AND NEEDING MULTIPLE CUES. I WILL LOOK AGAIN LATER TODAY AND TOMORROW TO SEE WHERE WE ARE WITH THERAPIES, AND IF SHE LOOKS TO MEET CRITERIA AND IS WILLING TO COME, WE CAN START THE PREAUTH WITH HER INSURANCE ON WEDNESDAY THANK YOU FOR THE REFERRAL. MICHELLE POLLARD RN CLINICAL LIAISON, INPATIENT REHAB.
--- NOTE | 2020-09-14 14:47 | NUR ---
URINE CULTURE COLLECTED FROM [facility] AND TAKEN TO LAB. BLOOD CONTINUES TRANSFUSING. VSS
--- NOTE | 2020-09-14 14:49 | NUR ---
PATIENT SAT 99% ON 2L NC. REMOVED O2. PATIENT SAT 96% ON ROOM AIR. WILL CONTINUE TO MONITOR.
[2020-09-14 16:12] VITALS: BP 97/43
--- NOTE | 2020-09-14 17:50 | NUR ---
BLOOD TRANSFUSION COMPLETE. VSS.
[2020-09-14 20:00] VITALS: BP 106/51
[2020-09-15] VITALS: BP 95/49
--- NOTE | 2020-09-15 00:15 | NUR ---
I have reviewed this patient and I concur with the Shift Assessment completed by the Licensed Practical Nurse today this shift.
[2020-09-15 04:00] VITALS: BP 107/56
[2020-09-15 06:26] LABS: ALBUMIN 2.1 g/dL (3.4-5.0); ANION GAP 11.1 mmol/L (8-16); BILIRUBIN - TOTAL 0.32 mg/dL (0.2-1.3); CALCIUM 7.7 mg/dL (8.5-10.1); CARBON DIOXIDE 23.9 mmol/L (21.0-32.0); CREATININE - SERUM 1.3 mg/dL (0.6-1.3); PROTEIN - SERUM 5.9 g/dL (6.4-8.2)
[2020-09-15 06:52] LABS: BASOPHILS 0.4 % (0-2); EOSINOPHILS 5.5 % (0-7); HEMATOCRIT 27.2 % (36.0-48.0); HEMOGLOBIN 8.7 g/dL (12-16); IMMATURE GRANULOCYTES 0.3 % (0-5); LYMPHOCYTE ABS# 1.75 10x3/uL (1.18-3.74); LYMPHOCYTES 23.6 % (15-50); MEAN PLATELET VOLUME 9.2 fL (7.4-10.4); MONOCYTES 11.6 % (2-11); NEUTROPHIL ABS# 4.35 10x3/uL (1.56-6.13); NEUTROPHILS 58.6 % (40-80); PLATELET COUNT 203 10x3/uL (130-400); RDW 14.9 % (11.5-14.5); WBC 7.4 10x3/uL (4.8-10.8)
[2020-09-15 06:53] LABS: MCV 90.7 fL (80.0-100.0)
--- NOTE | 2020-09-15 07:00 | NUR ---
0700 BEDSIDE REPORT RECEIVED AWAKE ALERT ASSESSMENT COMPLETE
[2020-09-15 07:40] VITALS: BP 99/53
[2020-09-15 08:29] VITALS: BP 110/62
--- NOTE | 2020-09-15 09:00 | NUR ---
0900 UP IN RECLINER PER PHYSICAL THERAPY X 2 AND UTILIZING WALKER ZOIE WELL
[2020-09-15 13:34] VITALS: BP 106/54
--- NOTE | 2020-09-15 15:00 | NUR ---
1500 STAYED IN RECLINER CHAIR FOR SEVERAL HOURS ZOIE WELL PT ASSISTED BACK TO BED WITH WALKER
[2020-09-15 17:30] VITALS: BP 130/64
--- NOTE | 2020-09-15 19:40 | NUR ---
PATIENT RESTING IN BED WITH NO S/S OF DISTRESS. PATIENT DENIES NEEDS AT THIS TIME. BED IN LOWEST POSITION AND CALL LIGHT IN REACH. ENCOURAGED PATIENT TO CALL WITH NEEDS.
--- NOTE | 2020-09-15 20:46 | NUR ---
ADMINISTERED MEDS PER ORDERS. PATIENT ZOIE WELL. ENCOURAGED TO CALL WITH NEEDS.
[2020-09-16] VITALS: BP 112/58
[2020-09-16 04:00] VITALS: BP 106/51
[2020-09-16 06:52] LABS: BASOPHILS 0.3 % (0-2); EOSINOPHILS 5.2 % (0-7); HEMATOCRIT 28.3 % (36.0-48.0); HEMOGLOBIN 8.8 g/dL (12-16); IMMATURE GRANULOCYTES 0.6 % (0-5); LYMPHOCYTE ABS# 1.67 10x3/uL (1.18-3.74); LYMPHOCYTES 25.8 % (15-50); MCH 28.6 pg (26.0-34.0); MCHC 31.1 g/dL (31.0-37.0); MCV 91.9 fL (80.0-100.0); MEAN PLATELET VOLUME 9.5 fL (7.4-10.4); MONOCYTES 12.3 % (2-11); NEUTROPHIL ABS# 3.61 10x3/uL (1.56-6.13); NEUTROPHILS 55.8 % (40-80); RBC 3.08 10x6/uL (4.00-5.40); RDW 15.2 % (11.5-14.5); WBC 6.5 10x3/uL (4.8-10.8)
[2020-09-16 06:55] LABS: PLATELET COUNT 268 10x3/uL (130-400)
[2020-09-16 06:59] LABS: ANION GAP 11.4 mmol/L (8-16); BILIRUBIN - TOTAL 0.32 mg/dL (0.2-1.3); CALCIUM 8.1 mg/dL (8.5-10.1); CARBON DIOXIDE 25.8 mmol/L (21.0-32.0); CREATININE - SERUM 1.5 mg/dL (0.6-1.3); POTASSIUM - SERUM 4.2 mmol/L (3.5-5.1); PROTEIN - SERUM 5.9 g/dL (6.4-8.2)
[2020-09-16 08:58] VITALS: BP 121/63
[2020-09-16 13:53] VITALS: BP 107/53
--- NOTE | 2020-09-16 14:51 | NUR ---
Nutrition Follow-up: Diet: Diabetic PO intake: ~85% average x last 5 meals recorded; patient states that her appetite is "picking up." Last BM: none recorded since admit x 5 days now Wt: 151# (09/12/20) Meds noted: miralax, SSI, glipizide, NS@50 Labs noted: Cr 1.5(H), GFR 36(L), POC Glu 93(WNL) Recommend MD to consider increase in bowel regiment to promote BM regularity and hopefully help preserve appetite. RD will follow-up 09/19/20.
--- NOTE | 2020-09-16 16:01 | MORECARE ---
CASE MANAGEMENT DISCHARGE SUMMARY PATIENT: KATYA WYNNE UNIT: [id number] ADM DATE: 09/11/20 AGE: 75 : 47 SEX: F ROOM/BED: D.2236 AUTHOR: RICKEY,DOC PHYSICIAN: REFERRING PHYSICIAN: PEPE ACOSTA MD DATE OF SERVICE: 09/16/20 Case Management Discharge Planning Summary COMMENTS ENTERED DATE: 09/16/20 15:54 CT COMMENT TYPE: Discharge Planning REVIEWER: Tanya Medina PATIENT WILL BE DISCHARGING TO INPATIENT REHAB AT [facility] TODAY. IMM SERVED AND EXPLAINED. PATIENT STATED THAT SHE WILL BE STAYING WITH HER DAUGHTER MERLYN AFTER REHAB. HER PCP IS DR HUTIRON AND SHE USES THE [facility] ON [address]. SHE HAS A WALKER & BSC AND WILL BE GETTING A WHEELCHAIR. IMM SERVED AND EXPLAINED AVIS ALSO OBTAINED ENTERED DATE: 09/12/20 19:46 CT COMMENT TYPE: Discharge Planning REVIEWER: Carrie Xie CM CONSULT RECEIVED. PATIENT HAD TWO EPISODES OF BECOMING DIAPHORETIC, RIGID AND FEELING FAINT AND DIZZY. SHE AMBULATED WITHOUT O2. WHEN ASSISTED BACK TO BED O2 RECOVERED TO 98% AT REST. PATIENT DOES NOT REMEMBER DETAILS OF HER FALL. HER PLAN IS TO DISCHARGE TO HOME W/ [employer]. HE WORKS DURING THE DAY. PRIMARY NURSE SPOKE W/ EULA THIS PM AFTER SECOND EPISODE. TELEMETRY ORDERED. ORTHOSTATIC B/P'S ORDERED. WILL VISIT PATIENT WHEN [facility] IS AVAILABLE AND ASSESS NEEDS AFTER POD#2. CM TO FOLLOW. [facility] REVIEW SUMMARY ANTICIPATED D/C DATE: EXPECTED LOS : CASE STATUS: DCP Initiated INITIAL REVIEW: 09/11/2020 INITIAL REVIEWER: Tanya Medina FINAL DISCHARGE DISPOSITION: : FINAL REVIEWER: FINAL REVIEW DATE: HIP Focus Questions & Answers QUESTION: ANSWER : PATIENT: KATYA WYNNE ENCOUNTER: [id number] MEDICAL RECORD#: [id number] ADMISSION DATE: 09/11/2020 DISCHARGE DATE: ATTENDING MD: KARLA ACOSTA : AGE: 75 MARITAL STATUS: W DC PLAN ID: [id number] FACILITY: [facility] PRINTED ON: 09/16/20 16:01 CT All edits/amendments must be made on the electronic document DICTATION DATE: 09/16/201600 AUTO BODY BUILDER APPRENTICE: MICKY 09/16/201600 RPT#: [id number] DC DATE: STATUS: ADM IN [facility] [address] [place] [address] END OF REPORT
--- NOTE | 2020-09-16 18:05 | NUR ---
0700 AWAKE ALERT IN BED VOICING NO COMPLAINTS ASSESSMENT COMPLETE
--- NOTE | 2020-09-16 18:06 | NUR ---
0900 UP IN CHAIR WITH ASSIST X 2 RIGHT HIP DRESSING CDI AT INCISION SITE
--- NOTE | 2020-09-16 18:11 | NUR ---
1200 ASKED TO RETURN TO BED ASSIST X 1 USING A WALKER
--- NOTE | 2020-09-16 18:29 | NUR ---
170 DAUGHTER ARRIVED AT BEDSIDE TO ASSIST PT DRESSING AND PACKING HER BELONGINGS REPORT CALLED TO [facility] ON REHAB PT SAID SHE WAS WAITING FOR DR FERRIS TO SEE HER BEFORE SHE WAS DISCHARGED
--- NOTE | 2020-09-16 18:31 | NUR ---
2713 TRANSPORTER TOOL PT TO REHAB USING WHEELCHAIR
--- NOTE | 2020-09-16 18:32 | NUR ---
702 CALLED REHAB LOOKING FOR TELE MONITOR TRANSPORTER STATED SHE WILL TAKE MONITOR TO ICU
--- NOTE | 2020-09-16 18:43 | MORECARE ---
CASE MANAGEMENT DISCHARGE SUMMARY PATIENT: KATYA WYNNE UNIT: [id number] ADM DATE: 09/11/20 AGE: 75 : 47 SEX: F ROOM/BED: D.[facility] AUTHOR: RICKEY,DOC PHYSICIAN: REFERRING PHYSICIAN: PEPE ACOSTA MD DATE OF SERVICE: 09/16/20 Case Management Discharge Planning Summary COMMENTS ENTERED DATE: 09/16/20 15:54 CT COMMENT TYPE: Discharge Planning REVIEWER: Tanya Medina PATIENT WILL BE DISCHARGING TO INPATIENT REHAB AT [facility] TODAY. IMM SERVED AND EXPLAINED. PATIENT STATED THAT SHE WILL BE STAYING WITH HER DAUGHTER MERLYN AFTER REHAB. HER PCP IS DR HUITRON AND SHE USES THE [facility] ON [address]. SHE HAS A WALKER & BSC AND WILL BE GETTING A WHEELCHAIR. IMM SERVED AND EXPLAINED AVIS ALSO OBTAINED ENTERED DATE: 09/12/20 19:46 CT COMMENT TYPE: Discharge Planning REVIEWER: Carrie Xie CM CONSULT RECEIVED. PATIENT HAD TWO EPISODES OF BECOMING DIAPHORETIC, RIGID AND FEELING FAINT AND DIZZY. SHE AMBULATED WITHOUT O2. WHEN ASSISTED BACK TO BED O2 RECOVERED TO 98% AT REST. PATIENT DOES NOT REMEMBER DETAILS OF HER FALL. HER PLAN IS TO DISCHARGE TO HOME W/ [employer]. HE WORKS DURING THE DAY. PRIMARY NURSE SPOKE W/ EULA THIS PM AFTER SECOND EPISODE. TELEMETRY ORDERED. ORTHOSTATIC B/P'S ORDERED. WILL VISIT PATIENT WHEN [facility] IS AVAILABLE AND ASSESS NEEDS AFTER POD#2. CM TO FOLLOW. PAP REVIEW SUMMARY ANTICIPATED D/C DATE: EXPECTED LOS : CASE STATUS: DCP Initiated INITIAL REVIEW: 09/11/2020 INITIAL REVIEWER: Tanya Medina FINAL DISCHARGE DISPOSITION: : FINAL REVIEWER: FINAL REVIEW DATE: PAP Focus Questions & Answers QUESTION: ANSWER : PATIENT: KATYA WYNNE ENCOUNTER: [id number] MEDICAL RECORD#: [id number] ADMISSION DATE: 09/11/2020 DISCHARGE DATE: 09/16/2020 ATTENDING MD: KARLA ACOSTA : AGE: 75 MARITAL STATUS: W DC PLAN ID: [id number] FACILITY: [facility] PRINTED ON: 09/16/20 18:43 CT All edits/amendments must be made on the electronic document DICTATION DATE: 09/16/201842 DEFENSE TRAVEL ADMINISTRATOR: MICKY 09/16/201842 RPT#: [id number] DC DATE:09/16/20 STATUS: DIS IN [facility] [address] [place] [address] END OF REPORT
--- NOTE | 2020-09-17 07:42 | MORECARE ---
CASE MANAGEMENT DISCHARGE SUMMARY PATIENT: KATYA WYNNE UNIT: [id number] ADM DATE: 09/11/20 AGE: 75 : 47 SEX: F ROOM/BED: D.2236 AUTHOR: RICKEY,DOC PHYSICIAN: REFERRING PHYSICIAN: PEPE ACOSTA MD DATE OF SERVICE: 09/17/20 Case Management Discharge Planning Summary COMMENTS ENTERED DATE: 09/16/20 15:54 CT COMMENT TYPE: Discharge Planning REVIEWER: Tanya Medina PATIENT WILL BE DISCHARGING TO INPATIENT REHAB AT [facility] TODAY. IMM SERVED AND EXPLAINED. PATIENT STATED THAT SHE WILL BE STAYING WITH HER DAUGHTER MERLYN AFTER REHAB. HER PCP IS DR HUITRON AND SHE USES THE [facility] ON [address] SHE HAS A WALKER & BSC AND WILL BE GETTING A WHEELCHAIR. IMM SERVED AND EXPLAINED AVIS ALSO OBTAINED ENTERED DATE: 09/12/20 19:46 CT COMMENT TYPE: Discharge Planning REVIEWER: Carrie Xie CM CONSULT RECEIVED. PATIENT HAD TWO EPISODES OF BECOMING DIAPHORETIC, RIGID AND FEELING FAINT AND DIZZY. SHE AMBULATED WITHOUT O2. WHEN ASSISTED BACK TO BED O2 RECOVERED TO 98% AT REST. PATIENT DOES NOT REMEMBER DETAILS OF HER FALL. HER PLAN IS TO DISCHARGE TO HOME W/ [employer]. HE WORKS DURING THE DAY. PRIMARY NURSE SPOKE W/ EULA THIS PM AFTER SECOND EPISODE. TELEMETRY ORDERED. ORTHOSTATIC B/P'S ORDERED. WILL VISIT PATIENT WHEN [facility] IS AVAILABLE AND ASSESS NEEDS AFTER POD#2. CM TO FOLLOW. LAP REVIEW SUMMARY ANTICIPATED D/C DATE: EXPECTED LOS : 0 CASE STATUS: DCP Complete INITIAL REVIEW: 09/11/2020 INITIAL REVIEWER: Tanya Medina FINAL DISCHARGE DISPOSITION: 62 : Discharged/Trans to IP Rehab Facility Including Distinct Units of a Hospital FINAL REVIEWER: Tanya Medina FINAL REVIEW DATE: 09/17/2020 DCP Focus Questions & Answers QUESTION: ANSWER : PATIENT: KATYA WYNNE ENCOUNTER: [id number] MEDICAL RECORD#: [id number] ADMISSION DATE: 09/11/2020 DISCHARGE DATE: 09/16/2020 ATTENDING MD: KARLA ACOSTA : AGE: 75 MARITAL STATUS: W DC PLAN ID: [id number] FACILITY: [facility] PRINTED ON: 09/17/20 7:42 CT All edits/amendments must be made on the electronic document DICTATION DATE: 09/17/20741 MUD LOGGER: MICKY 09/17/20 0742 RPT#: [id number] DC DATE:09/16/20 STATUS: DIS IN [facility] [address] [place] [address] END OF REPORT
== END 2020-09-16 17:55 | DRG 522 ==
LOC: D.ER 11:43 → D.M3 15:47 → D.MS 15:47
PROVIDERS: Emergency Medicine; Orthopaedic Surgery; ADMIT Family Medicine; ATTEND Family Medicine
PROC: 0SR90J9 Replacement of Right Hip Joint with Synthetic Substitute, Cemented, Open Approach (ICD-10-PCS; principal; 2020-09-11 19:00)
DX: S72.001A Fracture of unspecified part of neck of right femur, initial encounter for closed fracture (principal); W19.XXXA Unspecified fall, initial encounter; E11.22 Type 2 diabetes mellitus with diabetic chronic kidney disease; N18.9 Chronic kidney disease, unspecified; E78.5 Hyperlipidemia, unspecified; E03.9 Hypothyroidism, unspecified; J42 Unspecified chronic bronchitis; M79.7 Fibromyalgia; G89.29 Other chronic pain; M54.9 Dorsalgia, unspecified; F32.9 Major depressive disorder, single episode, unspecified; F41.9 Anxiety disorder, unspecified; D64.9 Anemia, unspecified; H35.30 Unspecified macular degeneration

== ENCOUNTER 2020-09-16 17:37 | Inpatient (IN) | payer MEDICARE ==
[~2020-09-16] VITALS: Ht 172.7 cm; Wt 59.9 kg
[~2020-09-16 17:37] MED LIST changes: +ELIQUIS2.5 MG PO; +ULTRAM50 MG PO
--- NOTE | 2020-09-16 19:38 | NUR ---
PT IN BED WATCHING TV, NO IMMEDIATE NEEDS NOTED OR VERBALIZED, FLUIDS/CL WITHIN REACH, FALL PRECAUTIONS IN PLACE
[2020-09-16 19:58] VITALS: BP 102/47
[2020-09-16 21:47] VITALS: BP 102/47; BMI 20.1
[2020-09-17 06:36] LABS: BASOPHILS 0.6 % (0-2); EOSINOPHILS 4.3 % (0-7); HEMATOCRIT 27.5 % (36.0-48.0); HEMOGLOBIN 8.8 g/dL (12-16); IMMATURE GRANULOCYTES 0.4 % (0-5); LYMPHOCYTE ABS# 1.95 10x3/uL (1.18-3.74); LYMPHOCYTES 28.9 % (15-50); MCH 29.1 pg (26.0-34.0); MCV 91.1 fL (80.0-100.0); NEUTROPHIL ABS# 3.69 10x3/uL (1.56-6.13); NEUTROPHILS 54.8 % (40-80); PLATELET COUNT 294 10x3/uL (130-400); RBC 3.02 10x6/uL (4.00-5.40); RDW 14.9 % (11.5-14.5); WBC 6.7 10x3/uL (4.8-10.8)
[2020-09-17 06:55] LABS: ANION GAP 12.9 mmol/L (8-16); CALCIUM 8.3 mg/dL (8.5-10.1); CARBON DIOXIDE 22.4 mmol/L (21.0-32.0); CREATININE - SERUM 1.4 mg/dL (0.6-1.3); POTASSIUM - SERUM 4.3 mmol/L (3.5-5.1)
[2020-09-17 07:34] VITALS: BP 99/59
--- NOTE | 2020-09-17 09:00 | NUR ---
SHE IS USING THE WHEELCHAIR TO GO INTO THE BATHROOM. SHE HAS A DRESSING TO THE RIGHT HIP, CLEAN AND DRY, INTACT. THE CALL LIGHT IS WITHIN REACH AND THE BED ALARM IS ON.
[2020-09-17 09:01] VITALS: BP 103/50
[2020-09-17 16:00] VITALS: Ht 172.7 cm; Wt 59.9 kg
[2020-09-17 19:58] VITALS: BP 122/62
[2020-09-18 07:18] LABS: BASOPHILS 0.1 % (0-2); EOSINOPHILS 4.2 % (0-7); HEMATOCRIT 26.9 % (36.0-48.0); HEMOGLOBIN 8.4 g/dL (12-16); IMMATURE GRANULOCYTES 0.6 % (0-5); LYMPHOCYTE ABS# 1.21 10x3/uL (1.18-3.74); MCH 28.5 pg (26.0-34.0); MCHC 31.2 g/dL (31.0-37.0); MCV 91.2 fL (80.0-100.0); MEAN PLATELET VOLUME 9.1 fL (7.4-10.4); NEUTROPHIL ABS# 4.66 10x3/uL (1.56-6.13); NEUTROPHILS 69.1 % (40-80); PLATELET COUNT 323 10x3/uL (130-400); RBC 2.95 10x6/uL (4.00-5.40); RDW 14.8 % (11.5-14.5); WBC 6.7 10x3/uL (4.8-10.8)
[2020-09-18 07:24] LABS: ANION GAP 10.2 mmol/L (8-16); CALCIUM 8.1 mg/dL (8.5-10.1); CARBON DIOXIDE 24.6 mmol/L (21.0-32.0); CREATININE - SERUM 1.3 mg/dL (0.6-1.3); POTASSIUM - SERUM 3.8 mmol/L (3.5-5.1)
[2020-09-18 07:51] VITALS: BP 134/62
--- NOTE | 2020-09-18 08:00 | NUR ---
PATIENT IS ALERT WITH SOME CONFUSION NOTED. SITTING UP IN BED TO EAT BREAKFAST. BED ALARM ON. CALL LIGHT WITHIN REACH. VOICES NO NEEDS. WILL CONTINUE WITH PLAN OF CARE
--- NOTE | 2020-09-18 10:05 | NUR ---
PATIENT IN REHAB ROOM. WORKING WITH PHYSICAL THERAPIST. WALKING WITH WALKER WBAT ON RIGHT LEG
--- NOTE | 2020-09-18 11:00 | NUR ---
ASSISTED TO BATHROOM VIA WHEELCHAIR TO VOID. VOIDED WITHOUT DIFFICULTY. RETURNED TO BED. ALARM ACTIVIATED AND CALL LIGHT WITHIN REACH. NO FURTHER NEEDS STATED.
--- NOTE | 2020-09-18 15:00 | NUR ---
I have reviewed this patient and I concur with the Shift Assessment completed by the Licensed Practical Nurse today this shift.
--- NOTE | 2020-09-18 19:15 | NUR ---
PRN PAIN MEDICATION GIVEN FOR RIGH HIP PAIN/DISC
[2020-09-18 21:24] VITALS: BP 126/58
[2020-09-19 07:42] VITALS: BP 114/63
--- NOTE | 2020-09-19 17:10 | NUR ---
PT RESTING IN BED WITH EYES OPEN CALL LIGHT IN REACH NO PROBLEMS WILL MONITER
--- NOTE | 2020-09-19 19:04 | NUR ---
BEDSIDE SHIFT REPORT, INFORMED PT THAT I WILL BE BACK SHORTLY TO DO ASSESSMENT, PT VERBALIZES UNDERSTANDING, DENIES NEEDS AT THIS TIME
--- NOTE | 2020-09-19 20:05 | NUR ---
PT MUSIC ADAPTER LIGHT, PT BACK TO BED, ASSESSMENT PER FLOW SHEET, VS OBTAINED PER SENIOR ELECTRONICS TECHNICIAN, PT REPORTS FLATUS, BM TOADY, AND VOIDING WITH NO DIFFICULTY, DRESSING TO RIGHT HIP CDI, PT REQUESTED AND PROVIDED ICE PACK, REQUESTS PAIN MED WHEN DUE, INFORMED PT THAT I WILL CHECK ON THAT AND ADM WHEN DUE, PT VERBALIZES UNDERSTANDING, DENIES FURTHER NEEDS, FALL PRECAUTIONS IN PLACE
[2020-09-19 20:42] VITALS: BP 133/55
--- NOTE | 2020-09-19 21:22 | NUR ---
PT AWAKE, ADM 2100 MEDS AND PAIN MED PER MD ORDERS, SEE EMAR, PT DENIES FURTHER NEEDS
--- NOTE | 2020-09-19 22:06 | NUR ---
PT AWAKE, RATES PAIN 3/10, DENIES NEEDS AT THIS TIME, BED IN LOW POSITION, SIDE RAILS X 2, CALL LIGHT IN REACH
--- NOTE | 2020-09-20 00:23 | NUR ---
PT CINDER WORKER LIGHT, PT UP TO BR VIA WC WITH ASSISTANCE, VOIDED WITH NO DIFFICULTY, PT TO SINK TO WASH HANDS, BACK TO BED, REQUESTED AND SERVED NADINE CRACKERS AND MILK, DENIES FURTHER NEEDS
--- NOTE | 2020-09-20 02:35 | NUR ---
PT RESTING WITH EYES CLOSED, RESP QUIET, NO DISTRESS NOTED, LEFT UNDISTURBED AT THIS TIME, FALL PRECAUTIONS IN PLACE
--- NOTE | 2020-09-20 03:55 | NUR ---
PT UP TO BR VIA WC WITH ASSISTANCE, VOIDED WITH NO DIFFICULTY, PT TO SINK, WASHES HANDS, PT BACK TO BED, POSITIONED IN BED PER REQUEST, HEELS BRIDGED, PT C/O RIGHT HIP PAIN, ADM TRAMADOL PER MD ORDERS, SEE EMAR, PT DENIES FURTHER NEEDS
--- NOTE | 2020-09-20 06:15 | NUR ---
PT AWAKE, OBTAINED FSBS 157, ADM 0600/0700 MEDS PER MD ORDERS WITH FRESH H20, SEE EMAR, PT DENIES NEEDS AT THIS TIME
[2020-09-20 07:04] LABS: BASOPHILS 0.3 % (0-2); EOSINOPHILS 5.1 % (0-7); HEMATOCRIT 27.8 % (36.0-48.0); HEMOGLOBIN 8.6 g/dL (12-16); IMMATURE GRANULOCYTES 0.6 % (0-5); LYMPHOCYTE ABS# 1.51 10x3/uL (1.18-3.74); LYMPHOCYTES 23.2 % (15-50); MCH 28.4 pg (26.0-34.0); MCHC 30.9 g/dL (31.0-37.0); MCV 91.7 fL (80.0-100.0); MEAN PLATELET VOLUME 9.1 fL (7.4-10.4); MONOCYTES 11.2 % (2-11); NEUTROPHIL ABS# 3.89 10x3/uL (1.56-6.13); NEUTROPHILS 59.6 % (40-80); PLATELET COUNT 380 10x3/uL (130-400); RBC 3.03 10x6/uL (4.00-5.40); RDW 14.7 % (11.5-14.5); WBC 6.5 10x3/uL (4.8-10.8)
[2020-09-20 07:17] LABS: ANION GAP 10.3 mmol/L (8-16); CALCIUM 8.3 mg/dL (8.5-10.1); CARBON DIOXIDE 29.6 mmol/L (21.0-32.0); CREATININE - SERUM 1.4 mg/dL (0.6-1.3)
[2020-09-20 07:20] LABS: POTASSIUM - SERUM 4.9 mmol/L (3.5-5.1)
[2020-09-20 07:26] VITALS: BP 100/52
--- NOTE | 2020-09-20 07:30 | NUR ---
PT RESTING IN BED WITH EYES OPEN CALL LIGHT IN REACH NO PROBLEMS WILL MONITER
--- NOTE | 2020-09-20 14:36 | NUR ---
Nutrition Re-assessment: Diet: Diabetic PO intake: ~61% average x last 9 meals Last BM: 09/19/20 Wt: 132# (09/17/20) Meds noted: glipizide, miralax Labs noted: Cr 1.4(H), GFR 39(L), Glu 160(H), POC Glu 157(H) Estimated nutrition needs: [id number] evangelina (25-30 Act), 36-48gms protein (0.6-0.8), 1500-1800mL fluid (or per MD) Nutrition diagnosis: Altered nutrition related lab values r/t DM dx AEB elevated blood glucose. Nutrition goals: -PO intake =/>65% meals -Meet fluid needs -Stable weight DHS Recommendations/Interventions: -Continue current diet. Will continue to honor food preferences within diet restrictions. -Will continue to monitor PO intake and wt trend. -RD will follow-up within 7 days.
--- NOTE | 2020-09-20 18:22 | NUR ---
PT RESTING IN BED WITH EYES OPEN CALL LIGHT IN REACH NO PROBLEMS WILL MONITER
[2020-09-20 19:00] VITALS: BP 107/55
--- NOTE | 2020-09-20 19:58 | NUR ---
PATIENT RECEIVED SITTING UP IN BED. VITAL SIGNS & ASSESSMENT DONE. NO C/O PAIN OR DISTRESS. BED LOW. ALARM ON. CALL LIGHT WITHIN REACH. WILL CONTINUE TO MONITOR.
--- NOTE | 2020-09-20 21:40 | NUR ---
PATIENT AWAKE SITTING UP IN BED. PATIENT LAID DOWN. OLD DRESSING REMOVED WITH REMVER. REDNESS NOTED AROUND INCISION D/T TAPE. NEW AG DRESSING APPLIED, DATED. PATIENT TOLERATED IT WELL. BED LOW. ALARM ON. CALL LIGHT & BEDSIDE TABLE WITHIN REACH. WILL CONTINUE TO MONITOR.
--- NOTE | 2020-09-20 21:50 | NUR ---
PATIENT USED CALL LIGHT FOR ASSIST. PATIENT STANDBY ASSIST OUT OF BED & INTO WHEELCHAIR. STANDBY ASSIST ON & OFF COMMODE. VOID ONLY. RETURNED TO LOW BED. ALARM ON. CALL LIGHT & BEDSIDE TABLE WITHIN REACH. WILL CONTINUE TO MONITOR.
--- NOTE | 2020-09-21 04:00 | NUR ---
PATIENT USED CALL LIGHT FOR ASSIST. PATIENT MOD ASSIST INTO & OUT OF WHEELCHAIR. PATIENT MINIMAL ASSIST ON & OFF COMMODE. VOID ONLY. RETURNED TO LOW BED. ALARM ON. CALL LIGHT WITHIN REACH. WILL CONTINUE TO MONITOR.
--- NOTE | 2020-09-21 04:46 | NUR ---
I have reviewed this patient and I concur with the Shift Assessment completed by the Licensed Practical Nurse today this shift.
[2020-09-21 07:00] VITALS: BP 112/52
--- NOTE | 2020-09-21 07:44 | NUR ---
SHE IS SETTING UP FOR BREAKFAST IN THE WHEELCHAIR. SHE HAS A DRESSING TO THE RIGHT HIP- DRESSING- CLEAN,DRY, & INTACT. THE CALL LIGHT IS WITHIN REACH AND THE BED ALARM IS ON.
[2020-09-21 19:00] VITALS: BP 121/50
--- NOTE | 2020-09-21 19:32 | NUR ---
PATIENT RECEIVED SITTING UP IN BED. ASSESSMENT & VITAL SIGNS DONE. NO C/O PAIN OR DISTRESS AT THIS TIME. BED LOW. CALL LIGHT & BEDSIDE TABLE WITHIN REACH. WILL CONTINUE TO MONITOR.
--- NOTE | 2020-09-22 00:15 | NUR ---
PATIENT USED CALL LIGHT FOR ASSIST. PATIENT MINIMAL ASSIST IN & OUT OF BED. STANDBY ASSIST ON & OFF COMMODE. VOID ONLY. RETURNED TO LOW BED. ALARM ON. CALL LIGHT WITHIN REACH. HEELS BRIDGED WILL CONTINUE TO MONITOR.
--- NOTE | 2020-09-22 01:00 | NUR ---
I have reviewed this patient and I concur with the Shift Assessment completed by the Licensed Practical Nurse today this shift.
--- NOTE | 2020-09-22 03:10 | NUR ---
PATIENT EYES CLOSED. RESPIRATIONS 18 & EVEN. BED LOW. ALARM ON. CALL LIGHT, BEDSIDE TABLE WITHIN REACH. WILL CONTINUE TO MONITOR.
--- NOTE | 2020-09-22 05:26 | NUR ---
PATIENT AWAKE ON ROUNDS. STANDBY ASSIST IN & OUT OF WHEELCHAIR & COMMODE. VOID ONLY. PATIENT WASHED HANDS. PLACED CLEAN DENTURES IN MOUTH. RETURNED TO LOW BED. ALARM ON. CALL LIGHT & BEDSIDE TABLE WITHIN REACH. WILL CONTINUE TO MONITOR.
[2020-09-22 07:00] VITALS: BP 113/60
--- NOTE | 2020-09-22 08:03 | NUR ---
USING THE WHEELCHAIR TO GO INTO THE BATHROOM. SHE HAS A DRESSING TO THE RIGHT HIP- CLEAN AND DRY. SHE HAS BILATERAL ANKLE EDEMA. THE CALL LIGHT IS WITHIN REACH AND THE CHAIR ALARM IS ON.
[2020-09-22 19:00] VITALS: BP 103/48
--- NOTE | 2020-09-22 19:45 | NUR ---
PATIENT RECEIVED SITTING UP IN BED. ASSESSMENT & VITAL SIGNS DONE. NO C/O PAIN OR DISTRESS AT THIS TIME. BED LOW. ALARM ON. CALL LIGHT & BEDSIDE TABLE WITHIN REACH. WILL CONTINUE TO MONITOR.
--- NOTE | 2020-09-23 03:34 | NUR ---
PATIENT EYES CLOSED. RESPIRATIONS 18 & EVEN. BED LOW. ALARM ON. CALL LIGHT & BEDSIDE TABLE WITHIN REACH. WILL CONTINUE TO MONITOR.
--- NOTE | 2020-09-23 05:09 | NUR ---
I have reviewed this patient and I concur with the Shift Assessment completed by the Licensed Practical Nurse today this shift.
[2020-09-23 06:47] LABS: BASOPHILS 0.3 % (0-2); EOSINOPHILS 6.3 % (0-7); HEMATOCRIT 26.9 % (36.0-48.0); HEMOGLOBIN 8.3 g/dL (12-16); IMMATURE GRANULOCYTES 0.3 % (0-5); LYMPHOCYTE ABS# 1.54 10x3/uL (1.18-3.74); LYMPHOCYTES 25.4 % (15-50); MCH 28.1 pg (26.0-34.0); MCHC 30.9 g/dL (31.0-37.0); MCV 91.2 fL (80.0-100.0); MEAN PLATELET VOLUME 8.7 fL (7.4-10.4); MONOCYTES 11.9 % (2-11); NEUTROPHIL ABS# 3.39 10x3/uL (1.56-6.13); NEUTROPHILS 55.8 % (40-80); PLATELET COUNT 408 10x3/uL (130-400); RBC 2.95 10x6/uL (4.00-5.40); RDW 14.6 % (11.5-14.5); WBC 6.1 10x3/uL (4.8-10.8)
[2020-09-23 06:58] LABS: ANION GAP 11.3 mmol/L (8-16); CALCIUM 8.1 mg/dL (8.5-10.1); CARBON DIOXIDE 28.1 mmol/L (21.0-32.0); CREATININE - SERUM 1.4 mg/dL (0.6-1.3); POTASSIUM - SERUM 4.4 mmol/L (3.5-5.1)
[2020-09-23 07:55] VITALS: BP 128/53
--- NOTE | 2020-09-23 18:40 | NUR ---
PT RESTING IN BED WITH EYES OPEN CALL LIGHT IN REACH NO PROBLEMS WILL MONITER
--- NOTE | 2020-09-23 18:46 | NUR ---
PT RESTING IN BED WITH EYES OPEN CALL LIGHT IN REACH NO PROBLEMS WILL MONITER
[2020-09-23 19:37] VITALS: BP 109/51
[2020-09-24 07:31] VITALS: BP 107/56
--- NOTE | 2020-09-24 10:27 | NUR ---
PATIENT ADMITTS TO REHAB FROM ACUTE FLOOR. HER PCP IS DR. HUITRON. DME AT [facility] IS A BEDSIDE COMMODE AND A WALKER. DISCHARGE PLANS ARE FOR PATIENT TO RETURN TO HER HOME. WILL CONTNUE TO FOLLOW WITH PATIENT.
--- NOTE | 2020-09-24 13:20 | NUR ---
PT RESTING IN BED WITH EYES OPEN CALL LIGHT IN REACH WILL MONITER
--- NOTE | 2020-09-24 18:38 | NUR ---
PT RESTING IN BED WITH EYES OPEN CALL LIGHT IN REACH NO PROBLEMS WILL MONITER
[2020-09-24 20:09] VITALS: BP 103/52
[2020-09-25 07:04] LABS: BASOPHILS 1.1 % (0-2); EOSINOPHILS 5.8 % (0-7); HEMATOCRIT 26.9 % (36.0-48.0); HEMOGLOBIN 8.8 g/dL (12-16); LYMPHOCYTES 18.5 % (15-50); MCH 28.9 pg (26.0-34.0); MCHC 32.7 g/dL (31.0-37.0); MCV 88.4 fL (80.0-100.0); MEAN PLATELET VOLUME 6.4 fL (7.4-10.4); NEUTROPHILS 64.6 % (40-80); PLATELET COUNT 444 10x3/uL (130-400); RBC 3.04 10x6/uL (4.00-5.40); RDW 15.3 % (11.5-14.5); WBC 7.3 10x3/uL (4.8-10.8)
[2020-09-25 07:17] LABS: ANION GAP 12.1 mmol/L (8-16); CALCIUM 8.3 mg/dL (8.5-10.1); CARBON DIOXIDE 27.5 mmol/L (21.0-32.0); CREATININE - SERUM 1.3 mg/dL (0.6-1.3); POTASSIUM - SERUM 4.6 mmol/L (3.5-5.1)
--- NOTE | 2020-09-25 07:42 | NUR ---
PATIENT IS ALERT/ORIENT. SITTING UP IN BED WATCING T.V. BED ALARM ON. CALL LIGHT WITHIN REACH. VOICES NO NEEDS AT THIS TIME. WILL CONTINUE WITH PLAN OF CARE
[2020-09-25 08:09] VITALS: BP 116/59; BP 124/61
--- NOTE | 2020-09-25 13:32 | NUR ---
PATIENT IN REHAB ROOM. WORKING WITH PHYSICAL THERAPIST. DENIES ANY PAIN/DISC
--- NOTE | 2020-09-25 16:00 | NUR ---
I have reviewed this patient and I concur with the Shift Assessment completed by the Licensed Practical Nurse today this shift.
--- NOTE | 2020-09-25 19:04 | NUR ---
PATIENT HELPED TO BATHROOM. STAND BY ASST FROM BED TO WHEELCHAIR AND WHEELCHAIR ONTO TOILET
[2020-09-25 20:05] VITALS: BP 103/51
--- NOTE | 2020-09-26 04:59 | RHP ---
PATIENT: KATYA WYNNE MEDICAL RECORD: [id number] ACCOUNT: [id number] LOCATION:[facility] : 49 ADMISSION DATE: 09/16/20 REHABILITATION HISTORY AND PHYSICAL EXAMINATION POST ADMISSION PHYSICIAN EXAMINATION ADMITTING DIAGNOSIS: Right femoral neck fracture. HISTORY OF PRESENT ILLNESS: The patient is a 75-year-old female patient admitted to rehab after infected right femoral neck fracture. She had right total hip arthroplasty on 09/11/2020. She is a patient of Dr. Hammond. The patient presented to the ED after she tripped and fell while walking to the bathroom at her house. She was unable to bear weight on her leg and that is why she came in. X-ray showed a displaced right femoral neck fracture. The patient was placed n.p.o. and went to surgery. She was admitted to the floor. The patient had case management consulted for post-acute pain. The patient continues to be anemic at times, but not low enough to transfuse. Her blood sugars had been followed closely and have been elevated. Electrolytes are also being monitored. She is mod assist for lower extremity dressing. She is independent with feeding. She has been continued on her home meds. She is on a hypoglycemic protocol at this time. She needs to be monitored closely during her stay. She needs medication adjustments. We are monitoring her pain control. She got decreased activity tolerance, decreased strength, balance deficit, impaired mobility, high fall risk and self-care deficits. These are all barriers to her discharge home. She will require intensive therapy and medical management, unable to return home with her grandson and hopefully be as closer to her prior level of functioning as possible. COMORBIDITIES: Include anxiety, chronic kidney disease, decrease in mobility, decrease in physical functioning, falls, fatigue, fibromyalgia, hearing loss, hyperglycemia, hypoalbuminemia, hypothyroidism, macular degeneration, postop pain and safety concerns. PAST MEDICAL HISTORY: Significant for macular degeneration, diabetes, thyroid problems, hyperlipidemia, bronchitis, chronic cough, chronic pain, depression, anxiety and chronic kidney disease. PAST SURGICAL HISTORY: Please see previous charts. ALLERGIES: PENICILLIN, SULFA AND CODEINE. CURRENT MEDICATIONS: Prozac 20 mg daily, she is on Glucotrol 10 mg b.i.d., she is on Levothyroxine 75 mcg daily, polyethylene glycol 17 grams in 8 ounces of water daily, she is on Zocor 10 mg at bedtime, Colace 100 mg b.i.d., Eliquis 2.5 mg b.i.d., Ventolin updrafts every 4 hours and tramadol 50 mg every 6 hours p.r.n. HABITS: No alcohol or tobacco use. FAMILY HISTORY: Noncontributory. SOCIAL HISTORY: The patient hopes to return back home and get back to her prior level of functioning. REVIEW OF SYSTEMS: HISTORY AND PHYSICAL [id number] KATYA WYNNE GENERAL: Does complain of little weakness and fatigue. HEENT: Denies cold, cough or congestion. CARDIOVASCULAR: Denies any chest pain. PHYSICAL EXAMINATION: VITAL SIGNS: Stable, afebrile. GENERAL: An elderly female in no acute distress, alert upon exam. HEENT: Normocephalic and atraumatic. Mucosa moist. NECK: Supple. No lymphadenopathy. LUNGS: Clear in upper cuadra. No wheezing or rales. HEART: Regular rate and rhythm. No murmurs, rubs or gallops. ABDOMEN: Soft, benign, nondistended. Positive bowel sounds times 4. EXTREMITIES: No clubbing, cyanosis or edema. Postop looks pretty good. NEUROLOGIC: She does have some diffuse weakness. LABORATORY DATA: Her white count is 6.7, H&H of 8.8 and 27.5 and platelet count is 294. Sodium is 135, potassium 4.3, BUN and creatinine of 21 and 1.4 and blood sugar is noted to be 127. ASSESSMENT: This is a 75-year-old female patient admitted to rehab with a working diagnosis of right femoral neck fracture, status post hip replacement. The patient has potential to make improvement. We instituted the following multidisciplinary therapies including, not limited to physical, occupational, respiratory, speech, nutritional services, prosthetics and orthotics. Given her complex medical condition and risks for more complications, rehabilitation services cannot be provided at a low level of care such as skilled nurse facility. PLAN: 1. Admit to [facility] for inpatient therapy to include the following disciplines; A. Physical therapy to improve gait, all transfer skills and bed mobility to a modified independent level. B. Occupational therapy to improve activities of daily living. C. Case management to help with discharge planning and placement options. D. Nutrition to assist with nutritional needs. E. Rehabilitation nursing to assist in monitoring the patient's underlying medical condition and to assist with any type of bowel or bladder management. 2. The patient's current medication and Medicare will be continued. 3. Placed on standard fall precautions. 4. The patient's estimated length of stay is approximately 7 to 10 days. 5. Discuss this patient during care team staff meeting this week. TRANSINT:[id number] Voice Confirmation ID: [id number] DOCUMENT ID: [id number] 09/20/2020 delvis FENG notes whether there has been none or any medical/functional change since admission: - No change since preadmission screen. PING attests patient continues to be appropriate for IRF: - Continues to be appropriate. HISTORY AND PHYSICAL [id number] KATYA WYNNE,OLGA HUSAIN MD at 0459 CC: [id number] DICTATION DATE: 09/17/20 1151 SOLE DYER: 09/17/20 1303 ADM IN [facility] [address] [place] [address]
[2020-09-26 07:32] VITALS: BP 131/71
--- NOTE | 2020-09-26 08:00 | NUR ---
SHE IS SLEEPING, WE WOKE HER UP FOR BREAKFAST. SHE IS USING THE WHEELCHAIR TO GO INTO THE BATHROOM. SHE HAS A DRESSING TO HER RIGHT HIP, THE DRESSING IS CLEAN AND DRY AND INTACT. THE CALL LIGHT IS WITHIN REACH AND THE CHAIR ALARM IS ON.
--- NOTE | 2020-09-26 13:39 | NUR ---
Nutrition Re-Assessment Patient is discharge orders for tomorrow. Diet: Diabetic PO intake: ~89% average x last 9 meals Last BM: 09/26/20 x 2 Wt: 132# (09/17/20) Meds noted: glipizide, miralax Labs noted: POC Glu 105(WNL) Estimated nutrition needs: 1500-1800cal (25-30kcal/kg Act), 48-60gms protein (0.8-1gms/kg), 1500-1800mL fluid (or per MD) Nutrition diagnosis: Altered nutrition related lab values r/t T2DM AEB history of mildly elevated blood glucose. Nutrition goals: -PO intake =/>75% meals -Meet fluid needs -Stable weight DHS Recommendations/Interventions: -Recommend continue current diet. Will continue to honor food preferences. -RD will follow-up within 7 days if patient still admitted.
[2020-09-26 20:23] VITALS: BP 104/53
--- NOTE | 2020-09-26 22:57 | NUR ---
RECIEVED PATIENT SITTING UP IN CHAIR, BED IS IN LOW LOCKED POSITION, CALL LIGHT IN REACH, ASSISTED TO BATHROOM, NO ACUTE DISTRESS NOTED,
--- NOTE | 2020-09-27 03:58 | NUR ---
PATIENT RESTING QUIETLY IN BED EYES CLOSED.
[2020-09-27 05:58] LABS: BASOPHILS 1.1 % (0-2); EOSINOPHILS 7.1 % (0-7); HEMATOCRIT 26.7 % (36.0-48.0); HEMOGLOBIN 8.8 g/dL (12-16); LYMPHOCYTES 18.1 % (15-50); MCH 29.1 pg (26.0-34.0); MCHC 32.9 g/dL (31.0-37.0); MCV 88.6 fL (80.0-100.0); MEAN PLATELET VOLUME 6.4 fL (7.4-10.4); MONOCYTES 11.7 % (2-11); PLATELET COUNT 448 10x3/uL (130-400); RBC 3.02 10x6/uL (4.00-5.40); RDW 15.2 % (11.5-14.5); WBC 6.9 10x3/uL (4.8-10.8)
[2020-09-27 06:05] LABS: ANION GAP 9.1 mmol/L (8-16); CALCIUM 8.4 mg/dL (8.5-10.1); CARBON DIOXIDE 29.7 mmol/L (21.0-32.0); CREATININE - SERUM 1.4 mg/dL (0.6-1.3); POTASSIUM - SERUM 4.8 mmol/L (3.5-5.1)
[2020-09-27 07:57] VITALS: BP 121/62
--- NOTE | 2020-09-27 08:42 | NUR ---
SHE IS SETTING UP IN THE WHEELCHAIR FOR BREAKFAST. SHE HAS A DRESSING TO THE RIGHT HIP- CLEAN, DRY, INTACT. PRN GIVEN FOR PAIN. SHE IS DISCHARGING TO HOME TODAY. THE CALL LIGHT IS WITHIN REACH AND THE CHAIR ALARM IS ON.
--- NOTE | 2020-09-27 11:52 | NUR ---
PATIENT DISCHARGING HOME TODAY WITH FAMILY. [facility] WILL PROVIDE THERAPY AT HOME. NO NEW DME NEEDED AT THIS TIME. DR. HUITRON 10/09/20 @ 9:30, DR. FERRIS/GRACIA 10/09/20 @ 1:20. AVIS SIGNED, IMM SERVED AND EXPLAINED, ONE GIVEN TO PATIENT AND ONE FILED IN CHART. COMPARE DATA REVIEWED WITH PATIENT AND SHE VOICES UNDERSTANDING. DISCHARGE INSTRUCTIONS FAXED TO PCP, [facility]. # [id number], FAXED TO AND REVIEWED WITH PATIENT.
--- NOTE | 2020-09-27 13:42 | NUR ---
PAPERWORK GONE OVER WITH PATIENT AND HER DAUGHTER. WRITTEN PRESCRIPTIONS SENT WITH THE PAPER WORK. QUESTIONS ANSWERED. I CHANGED THE DRESSING TO THE RIGHT HIP-CLEAN, DRY AND INTACT. SENT NEW DRESSING SUPPLIES HOME WITH THEM. TAKEN OUT THE FRONT DOOR VIA WHEELCHAIR.
== END 2020-09-27 15:05 | disposition home health service (06) | DRG 561 ==
LOC: D.REHAB 17:37
PROVIDERS: ADMIT Emergency Medicine; ATTEND Emergency Medicine
DX: S72.001D Fracture of unspecified part of neck of right femur, subsequent encounter for closed fracture with routine healing (principal); W19.XXXD Unspecified fall, subsequent encounter; F41.9 Anxiety disorder, unspecified; E11.22 Type 2 diabetes mellitus with diabetic chronic kidney disease; N18.9 Chronic kidney disease, unspecified; R53.83 Other fatigue; M79.7 Fibromyalgia; E11.65 Type 2 diabetes mellitus with hyperglycemia; R05 Cough; F32.9 Major depressive disorder, single episode, unspecified; E03.9 Hypothyroidism, unspecified